=== PATIENT | male | born 1995 | race Two or more races ===

== ENCOUNTER 2018-03-13 02:27 | Emergency (ER) | payer SELFPAY ==
[2018-03-13 02:38] VITALS: BMI 23.1
--- NOTE | 2018-03-13 03:13 | ED PDOC ---
HPI: Psych/Substance Abuse Time Seen by Provider: 03/13/18 02:38 Chief Complaint (Nursing): Alcohol Ingestion Chief Complaint (Provider): Alcohol Ingestion ED Caveat: Intoxicated History Per: EMS History/Exam Limitations: intoxication Current Symptoms Are (Timing): Still Present Modifying Factor(s): Alcohol Additional Complaint(s): 22 year old male arrives to ED via ambulance for an evaluation of public intoxication in [place] prior to arrival. No reports of trauma, injury or further medical complaints. Patient admits to drinking at bars earlier. Past Medical History Reviewed: Historical Data, Nursing Documentation, Vital Signs Vital Signs: Last Vital Signs Temp 97.9 F 03/13/18 02:43 Pulse 101 H 03/13/18 02:43 Resp 16 03/13/18 02:43 BP 124/79 03/13/18 02:43 Pulse Ox 99 03/13/18 02:43 - Medical History PMH: No Chronic Diseases - Surgical History Surgical History: No Surg Hx - Family History Family History: States: Unknown Family Hx - Allergies Allergies/Adverse Reactions: Allergies Allergy/AdvReac Type Severity Reaction Status Date / Time No Known Allergies Allergy Verified 03/13/18 03:02 Review of Systems Review Of Systems: ROS cannot be obtained secondary to pt's inabilty to answer questions. Physical Exam - Reviewed Nursing Documentation Reviewed: Yes Vital Signs Reviewed: Yes - Physical Exam Appears: Positive for: No Acute Distress Head Exam: Positive for: ATRAUMATIC, NORMAL INSPECTION, NORMOCEPHALIC Eye Exam: Positive for: Normal appearance, EOMI, PERRL Cardiovascular/Chest: Positive for: Regular Rate, Rhythm Respiratory: Positive for: Normal Breath Sounds. Negative for: Respiratory Distress Extremity: Positive for: Normal ROM (right knee), Other (right knee abrasion). Negative for: Deformity (right knee) Neurologic/Psych: Positive for: Alert, Gait (unsteady) - ECG O2 Sat by Pulse Oximetry: 99 (RA) Pulse Ox Interpretation: Normal Medical Decision Making Medical Decision Making: Initial Impression: Alcohol intoxication Initial Plan: * Monitor for clinical sobriety Time: 0250 --Accucheck: 96 Scribe Attestation: Documented by Nona Narayanan, acting as a scribe for Dianna Conway MD. Provider Scribe Attestation: All medical record entries made by the Scribe were at my direction and personally dictated by me. I have reviewed the chart and agree that the record accurately reflects my personal performance of the history, physical exam, medical decision making, and the department course for this patient. I have also personally directed, reviewed, and agree with the discharge instructions and disposition. Time: 0700 -- Patient endorsed to Dr. Quiorz, pending CT. Scribe Attestation: Documented by Deondre Kim acting as a scribe for Dr. Dianna Conway MD. Provider Scribe Attestation: All medical record entries made by the Scribe were at my direction and personally dictated by me. I have reviewed the chart and agree that the record accurately reflects my personal performance of the medical decision making for this patient. I have also personally directed, reviewed, and agree with the discharge instructions and disposition. Disposition - Clinical Impression Clinical Impression: Alcohol abuse - Patient ED Disposition Is Patient to be Admitted: Transfer of Care Counseled Patient/Family Regarding: Studies Performed, Diagnosis - Disposition Referrals: [facility] [place] [Outside] - 03/15/18 Disposition: Transfer of Care Disposition Time: 07:00 Condition: STABLE Additional Instructions: Return if not better in 3 days. Instructions: Alcohol Abuse and Alcoholism (DC)
--- NOTE | 2018-03-13 07:43 | ED PDOC ---
- ECG O2 Sat by Pulse Oximetry: 99 (RA) Pulse Ox Interpretation: Normal Medical Decision Making Medical Decision Making: Time: 0700 -- Patient endorsed to me by Dr. Conway. Patient is a 22 y/o male brought to the ED for public intoxication, pending sobriety. Scribe Attestation: Documented by Deondre Kim acting as a scribe for Dr. David Quiroz MD. Provider Scribe Attestation: All medical record entries made by the Scribe were at my direction and personally dictated by me. I have reviewed the chart and agree that the record accurately reflects my personal performance of the history, physical exam, medical decision making, and the department course for this patient. I have also personally directed, reviewed, and agree with the discharge instructions and disposition. 1150: Stable. AAOx3. Tolerated PO. Ambulated with no issues. Clinical sobriety reached. Fu with pcp. Disposition - Clinical Impression Clinical Impression: Alcohol abuse - POA Present On Arrival: None - Disposition Referrals: [facility] [Outside] - 03/15/18 Disposition: Routine/Home Disposition Time: 11:51 Condition: STABLE Additional Instructions: Return if not better in 3 days. Instructions: Alcohol Abuse and Alcoholism (DC)
[2018-03-13 11:50] VITALS: BP 132/70; PULSE 94; RESP 16; TEMP 97.8
[2018-03-13 11:51] VITALS: O2SAT 99
== END 2018-03-13 12:03 | disposition home or self-care (01) ==
LOC: H.ER 02:27 → EDBD 02:27 → H.ER 12:03
DX: F10.10 Alcohol abuse, uncomplicated (principal)